=== PATIENT | male | born 1940 ===

== ENCOUNTER → 2018-05-21 18:22 | Outpatient (REF) | payer MEDICARE, OTHER, SELFPAY | LOC: LAB 18:22 | PROVIDERS: Visit Provider Dermatology | DX: Z85.828 Personal history of other malignant neoplasm of skin (principal); L30.4 Erythema intertrigo; L57.0 Actinic keratosis; L57.8 Other skin changes due to chronic exposure to nonionizing radiation; L81.4 Other melanin hyperpigmentation; R23.3 Spontaneous ecchymoses | CPT/HCPCS: 87070; 87075; 87077; 87186; 87205 ==